=== PATIENT | female | born 1965 | race African-American/Black ===

== ENCOUNTER 2017-02-28 04:43 | Emergency (ER) | payer SELFPAY ==
--- NOTE | ~2017-02-28 | CR173 ---
[facility] A Service of [facility] & [facility] RADIOLOGY TEXT RESULTS PATIENT: BOB LINARES LOCATION: [facility] : 61 UNIT #: [id number] AGE: [address]: Itz Randolph SEX: F ORDER DR: [id number] [facility] [address] [facility]. [place], [place] [address] [id number] MR#: [id number] Acc #: [id number] NAME: BOB LINARES : 1965 SEX: F STUDY DATE/TIME: 02/28/2017 5:30 UNIT: [facility] ROOM: STUDY DESCRIPTION: CR Knee 3 Views Rt Attending Physician: Itz Randolph P.A.-C. Ordering Physician: Itz Randolph P.A.-C. Primary Care Physician: No Primary Care Physician MEDICAL IMAGING REPORT This report is preliminary unless electronic signature is present EXAM Right knee series. INDICATIONS Right knee pain for the past week. PROCEDURE Three views right knee. COMPARISON 03/21/2016 FINDINGS Medial and patellofemoral compartment arthrosis. Small joint effusion. No fracture or dislocation. IMPRESSION 1. No acute findings. 2. Medial and patellofemoral compartment arthrosis. Dictated by... Juan Duque M.D. THIS IS AN ELECTRONICALLY VERIFIED REPORT Juan Duque M.D. at 02/28/2017 10:00 PM MARITZA/edson TD: 02/28/2017 10:42 JOB #: [id number] MEDICAL IMAGING REPORT Page 1 of 1 COPY
[~2017-02-28 04:43] MED LIST: FLEXERIL PO; KETOPROFEN PO
== END 2017-02-28 06:10 | disposition home or self-care (01) ==
LOC: CED 04:43
DX: M17.11 Unilateral primary osteoarthritis, right knee (principal); Z90.49 Acquired absence of other specified parts of digestive tract; Z98.890 Other specified postprocedural states; Z79.899 Other long term (current) drug therapy
CPT/HCPCS: 73562; 99283